=== PATIENT | male | born 1970 | race African-American/Black ===

== ENCOUNTER 2024-11-10 11:17 | Outpatient (CLI) | payer MEDICAID, SELFPAY ==
--- NOTE | 2024-11-10 10:00 | DI.RAD_ITS ---
Exam(s) XR FOOT RT COMPLETE EXAM: XR FOOT RT COMPLETE CLINICAL HISTORY: Pain rt foot, M79.671. TECHNIQUE: 2D digital imaging was performed. Three views. COMPARISON: No exams were available for comparison FINDINGS: BONES: No acute fracture is present. No bony destructive lesion is seen. Prominent heel spurs. JOINTS: No dislocation present. Hammertoe deformities of the 2nd through 4th toes. Degenerative milad nges at the interphalangeal joint of the great toe with spurring assess cystic change medially. Mild degenerative changes of the intertarsal joints. The plantar arch is maintained. SOFT TISSUE: Normal. IMPRESSION: Heel spurs. Hammertoe deformities. Mild degenerative changes. DATA REPOSITORY: RADIATION DOSE DELIVERED:
--- NOTE | 2024-11-10 10:00 | DI.RAD_ITS ---
Exam(s) XR FOOT LT COMPLETE EXAM: XR FOOT LT COMPLETE CLINICAL HISTORY: Pain lt foot, M79.672. TECHNIQUE: 2D digital imaging was performed. Three views. COMPARISON: CR XR FOOT RT COMPLETE from 11/10/2024 FINDINGS: BONES: No acute fracture is present. No bony destructive lesion is seen. Heel spurs. JOINTS: No dislocation present. Other mild degenerative changes at the 1st MTP joint and interphalang eal joint of the great toe. SOFT TISSUE: Several calcifications are noted in the plantar fascia. There ossicles gait adjacent to the cuboid. IMPRESSION: Heel spurs. Plantar fascial calcification. DATA REPOSITORY: RADIATION DOSE DELIVERED:
== END 2024-11-10 11:37 ==
LOC: DI 11:17
PROVIDERS: PCP Family Medicine; Visit Provider Podiatrist
DX: M79.672 Pain in left foot (principal); M79.671 Pain in right foot
CPT/HCPCS: 73630